=== PATIENT | female | born 1945 | race Caucasian/White ===

== ENCOUNTER → 2016-06-17 | Outpatient (CLI) | payer OTHER ==
[~2016-06-17] MED LIST: FAMO20TA11 PO; INUL1CHW2 PO; ZSTI SC; [UNRECOGNIZED DRUG - CODE]
--- NOTE | 2016-06-18 12:46 | MAMMOGRAPHY REPORT ---
BILATERAL DIGITAL SCREENING MAMMOGRAM WITH CAD: 06/17/2016 CLINICAL HISTORY: Routine screening. Patient has no complaints. TECHNIQUE: Bilateral CC and MLO views were obtained. Current study was also evaluated with a Compu ter Aided Detection (CAD) system. COMPARISON: Comparison is made to exams dated: 06/15/2015 mammogram, 06/14/2014 mammogram, 06/13/2013 tatyana mogram, 06/09/2011 mammogram, 06/06/2010 mammogram - [facility], and 02/17/2007. BREAST COMPOSITION: The tissue of both breasts is extremely dense, which lowers the sensitivity of mammography. FINDINGS: There are minimal vascular calcifications in the breasts. Scattered bilateral groupings o f benign-appearing coarse heterogeneous microcalcifications in the breasts. No new suspicious mass, architectural distortion or cluster of new, suspicious microcalcifications is seen. IMPRESSION: ACR BI-RADS CATEGORY 1: NEGATIVE There is no mammographic evidence of malignancy. A 1 year screening mammogram is recommended. The p atient will receive written notification of the results. Approximately 10% of breast cancers are not detected with mammography. A negative mammographic repor t should not delay biopsy if a clinically suggestive mass is present. Pratibha Hartley M.D. ay/:06/17/2016 16:32:57 Kiln Placer: Tiffanie CANTRELL)(Manolo), [facility] letter sent: Normal 1/2 BI-RADS Code: ACR BI-RADS Category 1: Negative
== END | disposition home or self-care (01) ==
LOC: C.MAMM 12:21
PROVIDERS: ATTEND Obstetrics & Gynecology
DX: Z12.31 Encounter for screening mammogram for malignant neoplasm of breast (principal)

== ENCOUNTER → 2016-06-24 | Outpatient (CLI) | payer OTHER ==
[2016-06-24 11:59] LABS: BASO % 1.3 %; BASO ABS # 0.04 K/uL (0-0.2); COMPLETE YES; EOS % 5.7 %; HEMATOCRIT 44.8 % (37-47); LYMPH % 48.1 %; LYMPH ABS # 1.51 K/uL (1.2-3.4); MEAN CELL VOLUME 95.3 fL (80-100); MEAN CORPUSCULAR HEMOGLOBIN 32.1 pg (25-34); MEAN CORPUSCULAR HGB CONC 33.7 g/dl (32-36); MEAN PLATELET VOLUME 10.7 fL (7.4-10.4); MONO % 12.1 %; NEUT % 32.8 %; PLATELET COUNT 152 K/uL (130-400); WHITE BLOOD COUNT 3.14 K/uL (4.8-10.8)
[2016-06-24 12:13] LABS: URINE APPEARANCE CLEAR (CLEAR); URINE BILIRUBIN NEG (NEG); URINE COLOR YELLOW; URINE EPITHELIAL CELL AUTO >30 /lpf (0-5); URINE NITRITE NEG (NEG); URINE SPECIFIC GRAVITY 1.011 (1.000-1.030); UROBILINOGEN NEG (NEG); ZZUR CULT IF INDIC CLEAN CATCH NO
[2016-06-24 12:21] LABS: ESTIMATED AVERAGE GLUCOSE 128 mg/dl; HA1C FLAG Normal (Normal)
[2016-06-24 12:28] LABS: MANUAL MICROSCOPIC REQUIRED? NO; REVIEW REQ? NO
[2016-06-24 12:35] LABS: ALT/SGPT 24 U/L (12-78); AST/SGOT 19 U/L (15-37); BLOOD UREA NITROGEN 23 mg/dl (7-18); BUN/CREATININE RATIO 32.1 (10-20); CALCIUM 9.2 mg/dl (8.5-10.1); CARBON DIOXIDE 32 mmol/L (21-32); CHLORIDE 104 mmol/L (98-107); CREATININE 0.73 mg/dl (0.60-1.20); GLUCOSE 114 mg/dl (70-99); POTASSIUM 4.3 mmol/L (3.5-5.1); SODIUM 140 mmol/L (136-145)
[2016-06-24 12:40] LABS: ALB/GLOB RATIO 1.2 (0.9-2); ALKALINE PHOSPHATASE 88 U/L (45-117)
--- NOTE | 2016-06-30 08:52 | CODING QUERY MEDICAL NECESSITY ---
SUPPORTING DIAGNOSIS NEEDED A supporting diagnosis is required for the test/procedure performed on this patient in order for us to be reimbursed by the patient's insurance. Please provide a supporting diagnosis for the following test/procedure listed below next to the test name along with your signature. *If there is no additional diagnosis for this patient that would support the following test/procedure please document that below next to the test/procedure. Test(s)/Procedure(s) that require a supporting diagnosis: DOS 06/24 * Vitamin D DIAGNOSIS: Provider Signature: Date: Thank you Angela Garcia Health Information Management Once completed, please kindly fax back to [phone] For questions please call [phone]
== END | disposition home or self-care (01) ==
LOC: C.LABBFT 08:09
PROVIDERS: ATTEND Internal Medicine
DX: E11.9 Type 2 diabetes mellitus without complications (principal); D72.819 Decreased white blood cell count, unspecified

== ENCOUNTER → 2016-12-26 | Outpatient (CLI) | payer OTHER ==
[2016-12-26 09:38] LABS: BASO % 0.9 %; BASO ABS # 0.03 K/uL (0-0.2); COMPLETE YES; EOS % 2.4 %; HEMATOCRIT 43.1 % (37-47); LYMPH ABS # 1.51 K/uL (1.2-3.4); MEAN CELL VOLUME 94.3 fL (80-100); MEAN CORPUSCULAR HEMOGLOBIN 33.5 pg (25-34); MEAN CORPUSCULAR HGB CONC 35.5 g/dl (32-36); MEAN PLATELET VOLUME 9.9 fL (7.4-10.4); MONO % 9.1 %; NEUT % 41.6 %; PLATELET COUNT 146 K/uL (130-400); RED BLOOD COUNT 4.57 M/uL (4.2-5.4); WHITE BLOOD COUNT 3.28 K/uL (4.8-10.8)
[2016-12-26 10:17] LABS: ESTIMATED AVERAGE GLUCOSE 128 mg/dl; HA1C FLAG Normal (Normal)
== END | disposition home or self-care (01) ==
LOC: C.LAB1850 08:43
PROVIDERS: ATTEND Internal Medicine
DX: E11.9 Type 2 diabetes mellitus without complications (principal); D72.819 Decreased white blood cell count, unspecified

== ENCOUNTER → 2017-02-04 | Outpatient (CLI) | payer OTHER | END | disposition home or self-care (01) | LOC: C.PAPS 09:38 | PROVIDERS: ATTEND Obstetrics & Gynecology | DX: Z12.4 Encounter for screening for malignant neoplasm of cervix (principal) ==

== ENCOUNTER → 2017-05-15 | Outpatient (CLI) | payer OTHER | END | disposition home or self-care (01) | LOC: C.LABSPEC 16:03 | PROVIDERS: ATTEND Obstetrics & Gynecology | DX: N95.0 Postmenopausal bleeding (principal) ==

== ENCOUNTER → 2017-05-20 | Outpatient (CLI) | payer OTHER ==
--- NOTE | 2017-05-20 15:25 | DIAGNOSTIC IMAGING REPORT ---
CHEST 2 VIEWS ROUTINE CLINICAL HISTORY: Preoperative testing. COMPARISON STUDY: No previous studies for comparison. FINDINGS: Lung volumes are normal. There is no consolidation or evidence for pulmonary edema. Cardiac size is normal. Mediastinal contours are normal. No pneumothorax or pleural effusion is noted. IMPRESSION: No acute cardiopulmonary findings. Electronically signed by: Justin Ch M.D. 05/20/2017 3:24 PM Dictated Date/Time: 05/20/2017 3:24 PM
== END | disposition home or self-care (01) ==
LOC: C.RAD1850 15:08
PROVIDERS: ATTEND Obstetrics & Gynecology
DX: Z01.818 Encounter for other preprocedural examination (principal)

== ENCOUNTER → 2017-05-25 | Day surgery (SDC) | payer OTHER ==
[2017-05-20 11:26] VITALS: Ht 162.6 cm; Wt 49.5 kg
--- NOTE | 2017-05-22 08:08 | HISTORY & PHYSICAL EXAMINATION ---
DATE OF ADMISSION: 05/25/2017 CHIEF COMPLAINT: Postmenopausal bleeding. HISTORY OF PRESENT ILLNESS: The patient is a 72-year-old white female who had an episode of some light bleeding 1-2 weeks ago. Ultrasound showed fluid within the endometrial cavity as well as a small mass. This mass measures 0.6 x 0.6 x 0.2 cm. The patient is a 0. She was menopausal at age 53 and has not had any vaginal bleeding until this time. Her last Pap smear was January 2017 and this was negative. ALLERGIES: THE PATIENT REPORTS ALLERGIES TO ANTI-INFLAMMATORY MEDICATIONS INCLUDING ASPIRIN AND NSAIDS. ALSO HAS HAD INDIGESTION AND CONSTIPATION WITH METFORMIN. SHE REPORTS NAUSEA WITH CODEINE MEDICATIONS. MEDICATIONS: The patient takes a fiber capsule. She also takes famotidine 20 mg daily. ILLNESSES: She reports benign paroxysmal positional vertigo. Also type 2 diabetes, which is fairly well controlled. Her last hemoglobin A1c was 6.1%. She has a history of GERD. Also, Gilbert's syndrome. She has some hearing loss. Also, a small hiatal hernia. She does have a history of colon polyps. PAST SURGICAL HISTORY: She has had tooth extraction done. Also has a history of a tubal. FAMILY HISTORY: Notable for breast cancer in her mother and maternal aunt. Her brother had prostate cancer. Her father of early sudden . SOCIAL HISTORY: The patient is . She does not drink alcohol or smoke cigarettes. PHYSICAL EXAMINATION: VITAL SIGNS: The patient weighs 109 pounds. She is 5 foot 4 inches tall. Her blood pressure was 130/82. HEENT: Grossly within normal limits. NECK: Supple without masses. CHEST: Her lungs are clear without wheezing. HEART: Regular rate and rhythm. No murmurs, gallops or rubs. ABDOMEN: Soft and nontender with no masses. PELVIC: External genitalia normal. Vagina is pink and smooth. No blood visible in the vault. Cervix appears within normal limits. Uterus is small. Adnexa nontender with no masses palpable. EXTREMITIES: No cyanosis, clubbing or edema. IMPRESSION: A 72-year-old white female with postmenopausal bleeding and small endometrial mass by ultrasound. PLAN: The patient is for hysteroscopy, dilation of the cervix and curettage with possible removal of polyp/lesion. The patient is aware of the risks of bleeding, infection, perforation of the uterus, damage to internal organs which could require further surgery or treatment. The patient would like to proceed with the above surgery. MTDD
[~2017-05-25] VITALS: Ht 162.6 cm; Wt 49.5 kg
[~2017-05-25] MED LIST changes: +ATROPINE SULFATE 0.1 MG/ML 5ML SYR IV PRN; +DEXAMETHASONE SOD INJ 4 MG/ML VIAL ONE; +EpHEDrine SULFATE 50MG/5ML SYR ONE; +EpHEDrine SULFATE INJ 50 MG/ML AMP IV PRN; +FENTANYL CITRATE INJ 50 MCG/1 ML 2 ML VIAL IV PRN; +FENTANYL CITRATE INJ 50 MCG/1 ML 2 ML VIAL ONE; +LACTATED RINGER'S 1000ML 1,000 ML IV SCH; +LIDOCAINE HCL 2% 2 ML VIAL (20MG/ML) ONE; +ONDANSETRON INJ 2 MG/ML 2 ML VIAL IV PRN; +ONDANSETRON INJ 2 MG/ML 2 ML VIAL ONE; +PROPOFOL IV EMULSION 10 MG/ML 20 ML VIAL IV ONE; +SODIUM CHLORIDE 0.9% 1000ML 1,000 ML IV SCH; -ZSTI SC; -[UNRECOGNIZED DRUG - CODE]
--- NOTE | 2017-05-25 06:48 | History & Physical Bridge - SC ---
H&P Re-Evaluation Bridge Note: I have examined the patient, reviewed the History & Physical and in the interval since the performance of the History & Physical I have noted the following changes of clinical significance: No changes noted
--- NOTE | 2017-05-25 07:49 | [facility] Post Operative Brief Note ---
Immediate Operative Summary Operative Date May 25, 2017. Pre-Operative Diagnosis Postmenopausl bleeding Post-Operative Diagnosis Same as pre-op Procedure(s) Performed Dilatation And Curettage, Hysteroscopy Surgeon Dr. Denise Facilities Painter Surgeon(s) None Estimated Blood Loss 20ML Findings Consistent with Post-Op Diagnosis Specimens A.Endocervical curettings B.Endometrial curettings Drains None Anesthesia Type General Complication(s) none Disposition Disposition: Recovery Room / PACU
--- NOTE | 2017-05-25 07:58 | Discharge Instructions-SurgCtr ---
Discharge Instructions Date of Service May 25, 2017. Visit Reason for Visit: Post Menopausal Bleeding Discharge Discharge Diagnosis / Problem: S/P Hysteroscopy, D&C Discharge Goals Goal(s): Diagnostic testing, Therapeutic intervention Activity Recommendations Activity Limitations: per Instructions/Follow-up section ACTIVITY RECOMMENDATIONS: * Avoid tampons, douching, hot tubs, pools, and intercourse until bleeding has stopped. * May shower as usual. * No strenuous activity for 24-48 hours. After 24-48 hours, you may do anything you feel like doing (driving and sports are okay). SPECIAL CARE INSTRUCTIONS: Special Diet: * Mild nausea may occur in the immediate post-operative period. * Take clear liquids such as tea, cola or bouillon until all nausea has subsided; you may then resume your normal diet. Special Care: * Light bleeding and vaginal spotting can last from a few days to 3-4 weeks. Call your doctor if bleeding becomes heavier than the heaviest part of your period. * Check your temperature twice a day for one week. If it goes above 100.4 degrees Fahrenheit (38.0 Celsius), notify your doctor. Call if you have persistent severe cramping or heavy - bleeding or foul smelling vaginal discharge. * Call your doctor's office for an appointment for 6 weeks after your surgery. FOLLOW-UP VISIT: Keep you follow up visit. Anesthesia . Post Anesthesia Instructions: If you have had General Anesthesia or IV Sedation: * Do not drive today. * Resume driving when surgeon permits. * Do not make important decisions or sign legal documents today. * Call surgeon for: 1. Temperature elevations greater than 101 degrees F. 2. Uncontrollable pain. 3. Excessive bleeding. 4. Persistent nausea and vomiting. 5. Medication intolerance (nausea, vomiting or rash). * For nausea and vomiting use only clear liquids such as: tea, soda, bouillon until nausea subsides, then gradually increase diet as tolerated. * If you have any concerns or questions, call your surgeon's office. If physician is unavailable and it is an emergency, call 911 or go to the nearest emergency room. . Diet Recommendations Home Diet: resume previous diet Procedures Procedures Performed: Dilatation And Curettage, Hysteroscopy Pending Studies Studies pending at discharge: yes List of pending studies: Pathology report on tissue sent from the surgery. We will call you with result. Medical Emergencies . Who to Call and When: Medical Emergencies: If at any time you feel your situation is an emergency, please call 911 immediately. . Non-Emergent Contact Non-Emergency issues call your: Fur Comber Call Non-Emergent contact if: temperature is above 100.5, your pain is not controlled, your pain is worsening . . "Provider Documentation" section prepared by Elidia Denise. .
[2017-05-25 08:42] VITALS: TEMP 36.7
[2017-05-25 09:08] VITALS: BP 115/71; PULSE 76; O2SAT 99
--- NOTE | 2017-05-25 09:24 | Anesthesia Progress Nt - [facility] ---
Anesthesia Post Op Note Date & Time May 25, 2017 at 09:24 Vital Signs Pain Intensity: 3 Vital Signs Past 12 Hours Date Time Temp Pulse Resp B/P (MAP) Pulse Ox O2 Delivery O2 Flow Rate FiO2 05/25/17 09:08 76 16 115/71 (86) 99 Room Air 05/25/17 08:42 36.7 72 16 119/73 (88) 95 Room Air 05/25/17 08:36 118/61 05/25/17 08:34 77 22 97 05/25/17 08:34 77 22 05/25/17 08:32 36.2 75 22 118/61 96 Room Air 05/25/17 08:31 122/64 05/25/17 08:29 69 7 98 05/25/17 08:29 72 7 05/25/17 08:26 126/60 05/25/17 08:24 79 19 05/25/17 08:24 78 19 100 05/25/17 08:21 124/63 05/25/17 08:19 74 16 100 05/25/17 08:19 74 16 05/25/17 08:16 124/66 05/25/17 08:14 73 21 05/25/17 08:14 72 21 100 05/25/17 08:11 125/64 05/25/17 08:09 69 15 99 05/25/17 08:09 71 15 05/25/17 08:06 119/57 05/25/17 08:04 77 23 100 05/25/17 08:04 77 23 05/25/17 08:01 125/65 05/25/17 07:59 74 22 100 05/25/17 07:59 75 22 05/25/17 07:56 113/66 05/25/17 07:55 127/59 05/25/17 07:54 82 05/25/17 07:54 36.2 84 16 127/59 97 Mask 6 05/25/17 07:54 82 97 05/25/17 06:33 36.8 68 16 150/85 (106) 94 Room Air Notes Mental Status: alert / awake / arousable, participated in evaluation Pt Amnestic to Procedure: Yes Nausea / Vomiting: adequately controlled Pain: adequately controlled Airway Patency, RR, SpO2: stable & adequate BP & HR: stable & adequate Hydration State: stable & adequate Anesthetic Complications: no major complications apparent
--- NOTE | 2017-05-25 10:33 | OPERATIVE REPORT ---
DATE OF OPERATION: 05/25/2017 PREOPERATIVE DIAGNOSIS: Postmenopausal bleeding. POSTOPERATIVE DIAGNOSIS: Same. PROCEDURE PERFORMED: Hysteroscopy, dilation and curettage of the uterus. SURGEON: Dr. Elidia Denise. ANESTHESIA: General. INSURANCE SPECIALIST: Dr. Velasquez. DESCRIPTION OF PROCEDURE: The patient was taken to the operating room, where general anesthesia was administered. After an adequate level was obtained, she was placed in dorsal lithotomy position. Vulva, vagina, and cervix were prepped with Betadine solution. The patient was draped. Bladder was drained with a straight catheter. The patient's uterus was very small and cervix was posterior. Garcia retractor was used in the vagina as the introitus was too small to use a weighted speculum. The cervix was grasped with an Allis clamp. Endocervical curettings, which were scant, were obtained with a Ramirez's curette. The cervix was then dilated up to a #21. Hysteroscope was inserted and the endometrial cavity visualized. There were a few small polypoid masses within the upper cavity. Small polyp forceps was used to remove some small bits of this tissue. A tissue forceps was used through the scope also to remove a few more small bits of tissue. Ramirez's curette was then introduced into the endometrial cavity and some additional very small amounts of tissue obtained. The cavity was visualized again and there were just a few fragments of tissue visible. The polypoid tissue itself had been removed. A final pass was made with a Ramirez's curette for a scant amount of material. Ramirez's curette was used in this way as the endometrial cavity was so narrow and short. At this point, the procedure was ended. Photos were taken. Estimated blood loss was 20 mL. The patient was taken to the recovery room in good condition. I attest to the content of the Intraoperative Record and any orders documented therein. Any exceptions are noted below. MTDD
== END | disposition home or self-care (01) ==
LOC: X.SURG 06:15
PROVIDERS: ATTEND Obstetrics & Gynecology
DX: N95.0 Postmenopausal bleeding (principal); N85.8 Other specified noninflammatory disorders of uterus; Z88.6 Allergy status to analgesic agent; E11.9 Type 2 diabetes mellitus without complications; K21.9 Gastro-esophageal reflux disease without esophagitis; Z98.51 Tubal ligation status; Z98.818 Other dental procedure status; Z80.3 Family history of malignant neoplasm of breast

== ENCOUNTER → 2017-06-19 | Outpatient (CLI) | payer OTHER ==
[~2017-06-19] MED LIST changes: -ATROPINE SULFATE 0.1 MG/ML 5ML SYR IV PRN; -DEXAMETHASONE SOD INJ 4 MG/ML VIAL ONE; -EpHEDrine SULFATE 50MG/5ML SYR ONE; -EpHEDrine SULFATE INJ 50 MG/ML AMP IV PRN; -FENTANYL CITRATE INJ 50 MCG/1 ML 2 ML VIAL IV PRN; -FENTANYL CITRATE INJ 50 MCG/1 ML 2 ML VIAL ONE; -LACTATED RINGER'S 1000ML 1,000 ML IV SCH; -LIDOCAINE HCL 2% 2 ML VIAL (20MG/ML) ONE; -ONDANSETRON INJ 2 MG/ML 2 ML VIAL IV PRN; -ONDANSETRON INJ 2 MG/ML 2 ML VIAL ONE; -PROPOFOL IV EMULSION 10 MG/ML 20 ML VIAL IV ONE; -SODIUM CHLORIDE 0.9% 1000ML 1,000 ML IV SCH
--- NOTE | 2017-06-22 07:45 | MAMMOGRAPHY REPORT ---
BILATERAL DIGITAL SCREENING MAMMOGRAM TOMOSYNTHESIS WITH CAD: 06/19/2017 CLINICAL HISTORY: Routine screening. Patient has no complaints. TECHNIQUE: Breast tomosynthesis in addition to standard 2D mammography was performed. Current study was also evaluated with a Computer Aided Detection (CAD) system. COMPARISON: Comparison is made to exams dated: 06/17/2016 mammogram, 06/15/2015 mammogram, 06/14/2014 tatyana mogram, 06/13/2013 mammogram, 06/10/2012 mammogram, and 06/09/2011 mammogram - [facility] . BREAST COMPOSITION: The tissue of both breasts is extremely dense, which lowers the sensitivity of m ammography. FINDINGS: No suspicious masses, calcifications, or areas of architectural distortion are noted in ei ther breast. There has been no significant interval change compared to prior exams. Bilateral benign -appearing calcifications are not significantly changed. Bilateral asymmetries are stable. IMPRESSION: ACR BI-RADS CATEGORY 2: BENIGN There is no mammographic evidence of malignancy. A 1 year screening mammogram is recommended. The pa tient will receive written notification of the results. Approximately 10% of breast cancers are not detected with mammography. A negative mammographic report should not delay biopsy if a clinically suggestive mass is present. Dafne Merida M.D. ah/:06/19/2017 16:14:34 Service Restorer Emergency: Hannah WOOD(Marcella)(M), [facility] letter sent: Normal 1/2 BI-RADS Code: ACR BI-RADS Category 2: Benign
== END | disposition home or self-care (01) ==
LOC: C.MAMM 11:03
PROVIDERS: ATTEND Obstetrics & Gynecology
DX: Z12.31 Encounter for screening mammogram for malignant neoplasm of breast (principal)